=== PATIENT | female | born 1975 | race Caucasian/White ===

== ENCOUNTER 2021-03-17 13:19 | Emergency (ER) | payer OTHER, SELFPAY ==
[2021-03-17 13:30] VITALS: BP 152/86; PULSE 64; RESP 20; TEMP 36.3; O2SAT 99
--- NOTE | 2021-03-17 13:34 | ED.GENADULT ---
HPI - General Adult General Chief complaint: Upper Respiratory Infection Stated complaint: sore throat,diahrrea,nausea Time Seen by Provider: 03/17/21 13:34 Source: patient Mode of arrival: ambulatory Limitations: no limitations History of Present Illness HPI narrative: 46-year-old female patient presents to the [facility] with complaints of sore throat, diarrhea and nausea that started yesterday. Patient is unvaccinated for Covid. Patient's daughter was just diagnosed with strep throat today. Patient denies fevers, body aches or chills. Denies coughing or shortness of breath. Related Data Home Medications Medication Instructions Recorded Confirmed gabapentin 300 mg PO BID 03/17/21 03/17/21 pantoprazole 40 mg PO DAILY 03/17/21 03/17/21 sertraline 100 mg PO DAILY 03/17/21 03/17/21 Allergies Allergy/AdvReac Type Severity Reaction Status Date / Time Latex, Natural Rubber Allergy Rash Verified 06/03/19 08:36 Review of Systems Review of Systems: CONSTITUTIONAL: Denies fever, chills, or sweats. EYES: Denies visual changes, redness, or discharge. ENT: Positive rhinorrhea, congestion, sore throat, denies otalgia. CARDIOVASCULAR: Denies chest pain, palpitations, or edema. RESPIRATORY: Denies cough or dyspnea. GASTROINTESTINAL: Denies abdominal pain, nausea, vomiting, positive diarrhea. GENITOURINARY: Denies dysuria or hematuria. SKIN: Denies rash or itching. MUSCULOSKELETAL: Denies back pain, joint pain, or myalgia. NEUROLOGIC: Positive headache, numbness, or weakness. PSYCHIATRIC: Denies anxiety or depression. PMFSH Past Medical History Medical History No pertinent family history Seasonal asthma Surgical History Surgical History No significant past surgical history Social History Social History Smoking status: Current every day smoker Comments At the time of my signature I agree with nursing past medical history, surgical, social, and family history. There is no relevant family history pertinent to the presenting complaint. Exam Narrative: GENERAL: Well-appearing, well-nourished, and in no acute distress. HEAD: Normocephalic, atraumatic. EYES: PERRLA and EOMI. ENT: Nares with erythema and edema noted bilaterally, no rhinorrhea or epistaxis. Mucous membranes moist. Posterior pharynx with slight erythema but no tonsil enlargement, no exudates or lesions present. Bilateral TMs are clear no erythema or foreign bodies to the canal. NECK: Supple. No lymphadenopathy CHEST: Clear to auscultation. No respiratory distress. HEART: Regular rate and rhythm. No murmur heard. Normal peripheral pulses. ABDOMEN: Soft, nontender, nondistended, normal active bowel sounds. EXTREMITIES: Normal range of motion. No edema. SKIN: Warm, dry, no rash. NEURO: No focal deficits. Alert and oriented x3. Course Vital Signs Vital signs: Vital Signs Temperature 36.3 C L 03/17/21 13:30 Pulse Rate 64 03/17/21 13:30 Respiratory Rate 20 03/17/21 13:30 Blood Pressure 152/86 H 03/17/21 13:30 Pulse Oximetry 99 03/17/21 13:30 Temperature 36.3 C L 03/17/21 13:30 Pulse Rate 64 03/17/21 13:30 Respiratory Rate 20 03/17/21 13:30 Blood Pressure 152/86 H 03/17/21 13:30 Pulse Oximetry 99 03/17/21 13:30 Vital signs reviewed Medical Decision Making Differential Diagnosis Differential Diagnosis: Differential diagnosis: Allergic rhinitis, chronic sinusitis, tonsillitis, acute sinusitis, infectious mononucleosis, seasonal influenza, pertussis, diphtheria, meningococcal disease, viral syndrome, viral bronchitis, RSV, COVID-19 Discussed with patient that her rapid Covid came back negative as well as her strep came back negative however given the fact that her main symptom is a burning sore throat and her daughter just tested positive today for strep we are ca
== END 2021-03-17 14:28 | disposition home or self-care (01) ==
PROVIDERS: Emergency Provider Nurse Practitioner Family
DX: J02.9 Acute pharyngitis, unspecified (principal); Z20.822 Contact with and (suspected) exposure to COVID-19
CPT/HCPCS: 87081; 87426; 87880; 99213; C9803; G0463

== ENCOUNTER 2021-04-06 16:45 | Emergency (ER) | payer OTHER, SELFPAY ==
--- NOTE | 2021-04-06 16:53 | ED.URI ---
HPI - URI/Sore Throat General Chief Complaint: Upper Respiratory Infection Stated Complaint: Nausea/Chest Congestion Time Seen by Provider: 04/06/21 16:53 Source: patient and RN notes reviewed History of Present Illness HPI Narrative: Patient is a 46-year-old female who presents the urgent care with complaints of persistent nausea and diarrhea which is a chronic issue for her with new onset fever. Patient states that she was on amoxicillin due to her daughter having strep on March 17. States that she finished the medication and her strep culture was negative. Patient has been repeatedly tested for Covid and they were all negative in the past. Patient states that she is taking Tylenol and ibuprofen. Currently denies of any cough or other upper respiratory symptoms. States that she takes Imodium and drinks water for her abdominal issues. Patient states her main concern today is her daughter . No other acute complaints. No acute distress noted. Patient aware of the plan of care. Some parts of this dictation were generated by voice recognition software and may contain typographical and/or grammatical inaccuracies. Related Data Home Medications Medication Instructions Recorded Confirmed gabapentin 300 mg PO BID 03/17/21 04/06/21 pantoprazole 40 mg PO DAILY 03/17/21 04/06/21 sertraline 100 mg PO DAILY 03/17/21 04/06/21 Allergies Allergy/AdvReac Type Severity Reaction Status Date / Time Latex, Natural Rubber Allergy Rash Verified 06/03/19 08:36 Review of Systems Review of Systems: CONSTITUTIONAL: Reports of subjective fever EYES: Denies visual changes, redness, or discharge. ENT: Denies rhinorrhea, sore throat, or otalgia. Reports of sinus congestion CARDIOVASCULAR: Denies chest pain, palpitations, or edema. RESPIRATORY: Denies cough or dyspnea. GASTROINTESTINAL: Reports of chronic nausea and diarrhea without vomiting or abdominal pain GENITOURINARY: Denies dysuria or hematuria. SKIN: Denies rash or itching. MUSCULOSKELETAL: Denies back pain, joint pain, or myalgia. NEUROLOGIC: Denies headache, numbness, or weakness. All other systems reviewed are negative, except as documented in HPI. ON LICENSE OF [facility] Past Medical History Medical History No pertinent family history Seasonal asthma Surgical History Surgical History No significant past surgical history Social History Social History Smoking status: Current every day smoker Comments At the time of my signature, I reviewed and agree with the nursing past medical, surgical, social, and family history. There is no relevant family history pertinent to the patient complaint. Exam Narrative: GENERAL: This is a well-nourished, well-developed patient, in no apparent distress. HEAD: normocephalic, atraumatic. EYES: PERRL. Sclera clear/white. Vision is grossly intact. EARS: External ears normal, auditory canals clear and without drainage, TMs normal without perforation. Hearing grossly intact. NOSE: External nose normal with no obvious nasal discharge, nares without redness, no rhinorrhea. THROAT: Mucous membranes moist, posterior pharynx clear. Moderate postnasal drainage NECK: Neck supple CARDIOVASCULAR: Regular rate and rhythm without murmurs, gallops, or rubs. RESPIRATORY: Clear to auscultation. Breath sounds equal bilaterally. No wheezes, rales, or rhonchi. GASTROINTESTINAL: Abdomen soft, non-tender, nondistended. Bowel sounds are active. SKIN: warm, intact with no suspicious lesions or rash, good texture and turgor. NEURO: awake, alert, and oriented to person, place and time. There were no obvious focal neurologic abnormalities. EXTREMITIES: No clubbing, cyanosis, or edema. Course Vital Signs Vital signs: Vital Signs Temperature 97 F L 04/06/21 17:00 Pulse Rate 60 04/06/21 17:00 Respiratory Rate
[2021-04-06 17:00] VITALS: BP 150/90; BP 168/134; PULSE 60; RESP 16; TEMP 36.1; O2SAT 97
[2021-04-06 17:03] VITALS: BP 168/134; PULSE 60; RESP 16; TEMP 36.1; O2SAT 97
== END 2021-04-06 17:25 | disposition home or self-care (01) ==
PROVIDERS: Emergency Provider Nurse Practitioner Family; PCP Internal Medicine
DX: R11.0 Nausea (principal); J06.9 Acute upper respiratory infection, unspecified; F17.200 Nicotine dependence, unspecified, uncomplicated; J45.909 Unspecified asthma, uncomplicated
CPT/HCPCS: 99211; G0463

== ENCOUNTER 2021-07-15 09:16 | Emergency (ER) | payer OTHER, SELFPAY ==
[2021-07-15 09:28] VITALS: PULSE 88; RESP 14; TEMP 36.4; O2SAT 99
--- NOTE | 2021-07-15 09:30 | ED.GENADULT ---
HPI - General Adult General Chief complaint: Extremity Injury, Upper Stated complaint: right shoulder pain Time Seen by Provider: 07/15/21 09:30 Source: patient Mode of arrival: ambulatory Limitations: no limitations History of Present Illness HPI narrative: 46-year-old female patient presents to the [facility] with complaints of right shoulder pain. Patient states about 2 to 3 weeks ago she injured her shoulder when carrying a heavy item up some steps. 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 Patient states she has been also having some tingling down the arm to her hand and fingertips. Related Data Home Medications Medication Instructions Recorded Confirmed gabapentin 300 mg PO BID 03/17/21 07/15/21 pantoprazole 40 mg PO DAILY 03/17/21 07/15/21 sertraline 100 mg PO DAILY 03/17/21 07/15/21 Allergies Allergy/AdvReac Type Severity Reaction Status Date / Time Latex, Natural Rubber Allergy Rash Verified 07/15/21 10:22 Review of Systems Review of Systems: CONSTITUTIONAL: Denies fever, chills, or sweats. EYES: Denies visual changes, redness, or discharge. ENT: Denies rhinorrhea, congestion, sore throat, or otalgia. CARDIOVASCULAR: Denies chest pain, palpitations, or edema. RESPIRATORY: Denies cough or dyspnea. GASTROINTESTINAL: Denies abdominal pain, nausea, vomiting, or diarrhea. GENITOURINARY: Denies dysuria or hematuria. SKIN: Denies rash or itching. MUSCULOSKELETAL: Denies back pain, joint pain, or myalgia. Positive right shoulder pain NEUROLOGIC: Denies headache, numbness, or weakness. PSYCHIATRIC: Denies anxiety or depression. [facility] Past Medical History Medical History No pertinent family history Seasonal asthma Surgical History Surgical History No significant past surgical history Social History Social History Smoking status: Current every day smoker Comments At the time of my signature I agree with nursing past medical history, surgical, social, and family history. There is no relevant family history pertinent to the presenting complaint. Exam Narrative: GENERAL: Well-appearing, well-nourished, and in no acute distress. HEAD: Normocephalic, atraumatic. EYES: PERRLA and EOMI. ENT: Nares clear, no rhinorrhea or epistaxis. Mucous membranes moist. NECK: Supple. No lymphadenopathy CHEST: Clear to auscultation. No respiratory distress. HEART: Regular rate and rhythm. No murmur heard. Normal peripheral pulses. ABDOMEN: Soft, nontender, nondistended, normal active bowel sounds. EXTREMITIES: The R shoulder is without obvious asymmetry or deformity when compared to the L shoulder. No surface trauma, ecchymosis, crepitus. No bony deformity or prominence of the humeral head No erythema, warmth, slight swelling noted to the posterior shoulder near the top of the scapula. no tenderness to palpation to clavicle, A to C joint, acromion, scapula or humeral head. No tenderness to palpation of the bicipital groove or soft tissues. tenderness to palpation of the muscles over the top of the right scapula area. Patient does have a obvious muscle spasm palpated as well as visualized during exam. No muscle tenderness over the sterncleidomastoid, pectorals, biceps/triceps, deltoid, trapezius, rhomboid, latissimus dorsi, rotator cuff. No pain or limitation with active or passive abduction/adduction, internal/external rotation, flexion/extension. Negative empty can and drop arm test (rotator cuff). No axillary tenderness or lymphadenopathy. Normal sensation over the deltoid and ability to flex arm at elbow indicates intact axillary nerve function. Distal motor and neurovascular status i
[2021-07-15 10:12] VITALS: BP 140/82
== END 2021-07-15 10:50 | disposition home or self-care (01) ==
PROVIDERS: Emergency Provider Nurse Practitioner Family; PCP Internal Medicine
DX: M62.838 Other muscle spasm (principal); F17.200 Nicotine dependence, unspecified, uncomplicated
CPT/HCPCS: 99213; G0463

== ENCOUNTER 2022-07-08 22:48 | Emergency (ER) | payer OTHER, SELFPAY ==
--- NOTE | ~2022-07-08 | CT_ITS ---
EXAMINATION: CT abdomen pelvis w con DATE: 07/09/2022 01:44 INDICATION: Hematemesis. Hematochezia. Left lower quadrant abdominal pain. TECHNIQUE: Computed tomography (CT) of the abdomen and pelvis was performed with 100 mL Omnipaque 350 intravenous contrast. Automated exposure control and iterative reconstruction technique were employe d. The dose-length product was 671.07 mGy-cm. COMPARISON: None. FINDINGS: The visualized portions of the lung bases demonstrate minimal atelectasis. No pleural effus ion. The heart size is normal. No pericardial effusion. There is a small sliding hiatal hernia. The l iver, spleen, gallbladder, pancreas, and adrenal glands are normal. There is a 5 mm cyst in right kid jeff. There is a 4 mm stone in left kidney. There is a right femoral hernia containing fat. There are changes of appendectomy. There are no pathologically enlarged lymph nodes. There is no free intraperi toneal fluid. There is a 1.3 cm sclerotic lesion in left ilium, likely benign. There is mild lumbar s pondylosis. IMPRESSION: 1. Nonobstructing left kidney stone. 2. Small sliding hiatal hernia. Reviewed, dictated and finalized at location A. 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
[2022-07-08 23:10] VITALS: BP 172/76; PULSE 71; RESP 16; TEMP 36.5; O2SAT 96
--- NOTE | 2022-07-09 00:42 | ED.ABDPAIN ---
HPI - Abdominal Pain General Chief Complaint: Abdominal Pain Stated Complaint: abdominal pain, blood in vomit and stool Time Seen by Provider: 07/09/22 00:37 Source: patient Mode of arrival: ambulatory Limitations: no limitations History of Present Illness HPI narrative: FIVE DAYS AGO THIS 47-YEAR-OLD WHITE FEMALE STARTED HAVING BLOOD IN HER STOOL AND LEFT LOWER QUADRANT PAIN AND THEN 2 NIGHTS AGO SHE VOMITED UP BLOOD WITH FOOD. COMPLAINS OF PERSISTENT PAIN SO CAME TO THE EMERGENCY ROOM FOR EVALUATION. she had no history of peptic ulcer disease gastritis previous hematemesis. She had no history of diverticulitis or previous blood in her stool. She has not had any endoscopies or cancer screening or cancer. Denies any fever irritable bowel syndrome. hx appendectomy and hysterectomy for scarring and bleeding and large ovary. Was removed surgically. NO History of cancer. pain is 6/10 LLQ ACHY PAIN Related Data Home Medications Medication Instructions Recorded Confirmed sertraline 100 mg tablet 100 mg PO DAILY 03/17/21 07/09/22 lisinopril 10 mg tablet 10 mg PO DIRECTED 07/09/22 07/09/22 Allergies Allergy/AdvReac Type Severity Reaction Status Date / Time Latex, Natural Rubber Allergy Rash Verified 07/09/22 01:32 Review of Systems Constitutional: Constitutional: Reports no additional constitutional complaints Eyes: Eyes: Reports no additional eye complaints ENT: Reports system reviewed and no additional complaints, except as documented Cardiovascular: Cardiovascular: Reports no additional cardiovascular complaints and Denies chest pain Respiratory: Respiratory: Reports no additional respiratory complaints, Denies cough and Denies dyspnea Gastrointestinal: Gastrointestinal: Reports as per HPI, Reports no additional gastrointestinal complaints, Reports abdominal pain, Denies constipation, Denies heartburn, Denies diarrhea, Reports nausea and Reports vomiting Genitourinary: Genitourinary: Reports no additional female genitourinary complaints Musculoskeletal: Musculoskeletal: Reports no additional musculoskeletal complaints and Reports back pain ( SOMETIMES WHEN SHE HAS THE ABDOMINAL PAIN SHE HAS SOME L LOWER BACK PAIN) Integumentary/Breasts: Skin/Breast: Denies erythema and Denies rash Neurologic: Reports system reviewed and no additional complaints, except as documented, Denies confusion, Denies dizziness, Denies headache(s), Denies numbness and Denies weakness PMFSH Past Medical History Medical History No pertinent family history Seasonal asthma Surgical History Surgical History No significant past surgical history Social History Social History Smoking status: Current every day smoker Comments APPENDECTOMY HYSTERECTOMY LEFT OVARY REMOVED, SURGERY FOR BLEEDING ASSOCIATED WITH HER DONE ON HER UTERUS Exam Narrative: WHITE FEMALE SHE APPEARS IN NO APPARENT DISTRESS EYES CONJUNCTIVA PINK SCLERA NONICTERIC OROPHARYNX CLEAR WITH MOIST MUCOUS MEMBRANES. NECK IS SUPPLE. LUNGS ARE CLEAR. HEART IS REGULAR RATE RHYTHM WITHOUT MURMURS GALLOPS OR RUBS. ABDOMEN IS SOFT AND NONTENDER NO HEPATOSPLENOMEGALY OR MASSES NO CVA TENDERNESS NO ABDOMINAL BRUITS. NEGATIVE DUMONT SIGN AND. NEGATIVE INTO HER ORAL OBTURATOR'S SIGN . . SKIN IS WARM AND DRY NEUROLOGIC SHE IS ALERT AND ORIENTED X4. Course Vital Signs Vital signs: Vital Signs Temperature 36.5 C 07/08/22 23:10 Pulse Rate 71 07/08/22 23:10 Respiratory Rate 16 07/08/22 23:10 Blood Pressure 172/76 H 07/08/22 23:10 Pulse Oximetry 96 07/08/22 23:10 Oxygen Delivery Room Air 07/08/22 23:10 Temperature 36.5 C 07/08/22 23:10 Pulse Rate 64 07/09/22 02:33 Respiratory Rate 16 07/09/22 02:33 Blood Pressure 151/94 H 07/09/22 02:33 Pulse Oximetry 98
[2022-07-09 00:56] LABS: Basophils Absolute Auto 0.06 K/mm3 (0.00-0.10); Basophils Percent Auto 0.5 % (0.0-1.0); Eosinophils Percent Auto 2.3 % (1.0-6.0); Hemoglobin 14.2 g/dL (12.0-15.0); Immature Granulocyte Absolute 0.05 K/mm3 (0.00-0.00); Immature Granulocyte Percent A 0.4 % (0.0-0.0); Lymphocytes Percent Auto 28.2 % (18.0-42.0); Mean Corpuscular HGB Conc 33.8 g/dL (32.0-36.0); Mean Corpuscular Hemoglobin 33.3 pg (27.0-31.0); Mean Corpuscular Volume 98.6 fL (78.0-102.0); Monocytes Absolute Auto 0.78 K/mm3 (0.10-0.90); Monocytes Percent Auto 6.1 % (2.0-11.0); Neutrophils Percent Auto 62.5 % (50.0-70.0); Platelet Count Result 285 K/mm3 (150-420); Red Blood Count 4.26 M/mm3 (4.20-5.40); Red Cell Distribution Width 12.7 % (11.6-14.4); White Blood Count 12.8 K/mm3 (4.8-10.8)
[2022-07-09] MEDS: SODIUM CHLORIDE 0.9% IV 1,000 ML 999 ML IV CONT (01:15)
[2022-07-09 01:16] LABS: Alanine Aminotransferase 36 U/L (14-59); Albumin Level 3.5 g/dL (3.4-5.0); Alkaline Phosphatase 78 U/L (46-116); Anion Gap 6 mmol/L (8-16); Aspartate Amino Transferase 17 U/L (15-37); Bilirubin,Total 0.3 mg/dL (0.00-1.00); Blood Urea Nitrogen 14 mg/dL (7-18); Calcium 9.2 mg/dL (8.5-10.1); Carbon Dioxide 29 mmol/L (21-32); Chloride 100 mmol/L (98-108); Estimated Glomerular Filt Rate > 60; Glucose 106 mg/dL (70-99); Lipase 69 U/L (16-77); Osmolality Calculated 280 mOsm/kg (285-295); Potassium 3.7 mmol/L (3.5-5.1); Sodium 135 mmol/L (136-145)
[2022-07-09] MEDS: MORPHINE SULFATE (*CRX) 4 MG/ML INJ IV PUSH (01:17)
[2022-07-09] MEDS: ONDANSETRON INJ 4 MG/2 ML VIAL IV PUSH (01:18)
[2022-07-09] MEDS: PANTOPRAZOLE SODIUM IV 40 MG VIAL IV PUSH (01:20)
[2022-07-09 02:04] LABS: Add Urine Microscopic? NO; Appearance Urine Clear (Clear); Bilirubin Urine Negative (Negative); Blood Urine Negative (Negative); Color Urine Light Yellow (Yellow); Glucose Urine UA Negative (Negative); Ketones Urine Negative (Negative); Leukocyte Esterase Ur Negative LEU/UL (Negative); Nitrate Urine Negative (Negative); Protein Urine Negative (Negative); Specific Grav Ur 1.015 (1.010-1.020); Urobilinogen Urine 0.2 mg/dL (0.2-1.0)
[2022-07-09 02:27] VITALS: BP 146/69; PULSE 55; RESP 16; O2SAT 95
[2022-07-09 02:33] VITALS: BP 151/94; PULSE 64; RESP 16; O2SAT 98
--- NOTE | 2022-07-09 03:22 | PC.NURSE ---
Pt initially had a ride en route to pick pt up, but states she is unable to get ahold of her ride. After multiple tries, pt is unable to get a ride. ERP states pt is cleared to drive at 0715. RN educates pt on reason for stay and that she can leave if a ride shows up. Pt verbalizes understanding and has no objections at this time. Pt asked for the head of the bed to be lowered and to dim the lights. RN performed these actions and left the call light within reach of pt.
[2022-07-09 06:44] VITALS: BP 130/79; PULSE 64; RESP 16; O2SAT 96
== END 2022-07-09 07:04 | disposition home or self-care (01) ==
PROVIDERS: Emergency Provider Emergency Medicine; PCP Internal Medicine
DX: K92.0 Hematemesis (principal); R10.9 Unspecified abdominal pain; N20.0 Calculus of kidney; K92.1 Melena
CPT/HCPCS: 36415; 74177; 80053; 81003; 83690; 85025; 96361; 96374; 96375; 99284; C9113; J2270; J2405; J7030; Q9967

== ENCOUNTER 2022-08-14 16:33 | Emergency (ER) | payer OTHER, SELFPAY ==
[2022-08-14 16:39] VITALS: BP 152/79; PULSE 72; RESP 16; TEMP 36.6; O2SAT 97
--- NOTE | 2022-08-14 16:41 | ED.URI ---
HPI - URI/Sore Throat General Chief Complaint: Upper Respiratory Infection Stated Complaint: Throat and chest congestion Time Seen by Provider: 08/14/22 16:41 Source: patient and RN notes reviewed History of Present Illness HPI Narrative: Patient is a 47-year-old female who presents to urgent care with complaints of chest congestion, sore throat, tightness and cough. Patient states that she has also had diarrhea for approximately 1 week. Patient states symptoms started 2 weeks ago and she has had symptoms off and on. Denies any abdominal pain, nausea or vomiting. States that she has been taking Mucinex, Tylenol and ibuprofen. No other acute complaints. Denies any known ill exposures. No acute distress noted. Patient aware of the plan of care. Some parts of this dictation were generated by voice recognition software and may contain typographical and/or grammatical inaccuracies. Related Data Home Medications Medication Instructions Recorded Confirmed sertraline 100 mg tablet 100 mg PO DAILY 03/17/21 08/14/22 lisinopril 10 mg tablet 10 mg PO DIRECTED 07/09/22 08/14/22 Allergies Allergy/AdvReac Type Severity Reaction Status Date / Time Latex, Natural Rubber Allergy Rash Verified 08/14/22 17:05 Review of Systems Review of Systems: CONSTITUTIONAL: Denies fever, chills, or sweats. EYES: Denies visual changes, redness, or discharge. ENT: Reports rhinorrhea and sinus pressure with sore throat CARDIOVASCULAR: Denies chest pain, palpitations, or edema. RESPIRATORY: Reports of cough, chest congestion without dyspnea GASTROINTESTINAL: Reports of diarrhea without abdominal pain, nausea or vomiting GENITOURINARY: Denies dysuria or hematuria. SKIN: Denies rash or itching. MUSCULOSKELETAL: Denies back pain, joint pain, or myalgia. NEUROLOGIC: Denies headache, numbness, or weakness. All other systems reviewed are negative, except as documented in HPI. [facility] Past Medical History Medical History No pertinent family history Seasonal asthma Surgical History Surgical History No significant past surgical history Social History Social History Smoking status: Current every day smoker Comments At the time of my signature, I reviewed and agree with the nursing past medical, surgical, social, and family history. There is no relevant family history pertinent to the patient complaint. Exam Narrative: GENERAL: This is a well-nourished, well-developed patient, in no apparent distress. HEAD: normocephalic, atraumatic. EYES: PERRL. Sclera clear/white. Vision is grossly intact. EARS: External ears normal, auditory canals clear and without drainage, TMs normal without perforation. Hearing grossly intact. NOSE: External nose normal with no obvious nasal discharge, nares without redness, clear rhinorrhea. THROAT: Mucous membranes moist, mild erythema to posterior pharynx with Moderate postnasal drainage NECK: Neck supple, non-tender without lymphadenopathy CARDIOVASCULAR: Regular rate and rhythm RESPIRATORY: Clear to auscultation. Breath sounds equal bilaterally. No wheezes, rales, or rhonchi. GASTROINTESTINAL: Abdomen soft, non-tender, nondistended. Bowel sounds are active. SKIN: warm, intact with no suspicious lesions or rash, good texture and turgor. NEURO: awake, alert, and oriented to person, place and time. There were no obvious focal neurologic abnormalities. EXTREMITIES: No clubbing, cyanosis, or edema. Course Course Level of Care: Express Care Visit Vital Signs Vital signs: Vital Signs Temperature 97.8 F 08/14/22 16:39 Pulse Rate 72 08/14/22 16:39 Respiratory Rate 16 08/14/22 16:39 Blood Pressure 152/79 H 08/14/22 16:39 Pulse Oximetry 97 08/14/22 16:39 Oxygen Delivery Room Air 08/14/22 16:39 Temperature 97.8 F 08/14/22 16:39
== END 2022-08-14 17:20 | disposition home or self-care (01) ==
PROVIDERS: Emergency Provider Nurse Practitioner Family; PCP Internal Medicine
DX: J02.9 Acute pharyngitis, unspecified (principal); R19.7 Diarrhea, unspecified; F17.200 Nicotine dependence, unspecified, uncomplicated
CPT/HCPCS: 87081; 87880; 99213; G0463

== ENCOUNTER 2022-10-18 12:07 | Emergency (ER) | payer OTHER, SELFPAY ==
[2022-10-18 12:12] VITALS: BP 148/96; PULSE 68; RESP 16; TEMP 36.3; O2SAT 98
--- NOTE | 2022-10-18 12:58 | ED.SKABFB ---
HPI - Skin/Abscess/Foreign Bdy General Chief complaint: Skin/Abscess/Foreign Body Stated complaint: pain in right breast Time Seen by Provider: 10/18/22 12:55 Source: patient, RN notes reviewed and old records reviewed Mode of arrival: ambulatory Limitations: no limitations History of Present Illness HPI narrative: 47 year old female who presents to [facility] care with 10 day history of right breast pain with nipple feeling like it is on fire. Patient reports that breast feels heavy with some warmth, pain lower aspect of right breast with radiation of pain up right side of right breast toward shoulder. Patient reports no nipple discharge. patient reports that she called [employer] office and can't get appointment till first part of October. Patient reports last mammogram 1.5 years ago. Patient concerned due to family history of breast cancer. MD complaint: other (warmth and pain to breast 10 days) Onset (ago): day(s) (10 increasing intensity) Severity scale (1-10): 8 Pain Consistency: constant Treatments prior to arrival: other (tylenol) Related Data Home Medications Medication Instructions Recorded Confirmed sertraline 100 mg tablet 100 mg PO DAILY 03/17/21 10/18/22 lisinopril 10 mg tablet 10 mg PO DIRECTED 07/09/22 10/18/22 Allergies Allergy/AdvReac Type Severity Reaction Status Date / Time codeine Allergy Unknown Verified 10/18/22 12:34 Latex, Natural Rubber Allergy Anaphylaxis Verified 10/18/22 12:34 Review of Systems Review of Systems: CONSTITUTIONAL: Denies fever, chills, or sweats. EYES: Denies visual changes, redness, or discharge. ENT: Denies rhinorrhea, congestion, sore throat, or otalgia. CARDIOVASCULAR: Denies chest pain, palpitations, or edema. RESPIRATORY: Denies cough or dyspnea. GASTROINTESTINAL: Denies abdominal pain, nausea, vomiting, or diarrhea. GENITOURINARY: Denies dysuria or hematuria. SKIN: Denies rash or itching. 10 day history of right nipple burning with breast feeling heavy and some warm MUSCULOSKELETAL: Denies back pain, joint pain, or myalgia. NEUROLOGIC: Denies headache, numbness, or weakness. PSYCHIATRIC: Positive for history of anxiety or depression. All systems reviewed & are unremarkable except as noted in HPI and below PMFSH Past Medical History Medical History Anxiety and depression GERD (gastroesophageal reflux disease) Hypertension Kidney stones Seasonal asthma Surgical History Surgical History H/O exploratory laparotomy X2 endometriosis H/O: hysterectomy History of appendectomy S/P colon resection Family History Family History Other Breast cancer Social History Social History Smoking status: Current every day smoker Comments At time of signature, agree with nursing past medical, surgical, social and family history. There is no relevant family history pertinent to the presenting complaint Exam Narrative: GENERAL: Well-appearing, well-nourished, and in no acute distress. HEAD: Normocephalic, atraumatic. EYES: PERRLA and EOMI. ENT: Nares clear, no rhinorrhea or epistaxis. Mucous membranes moist.TM's normal throat pink with no swelling present NECK: Supple. no lymphadenopathy CHEST: Clear to auscultation. No respiratory distress.SAO2 98% on room air HEART: Regular rate and rhythm. No murmur heard. Normal peripheral pulses. ABDOMEN: Soft, nontender, nondistended, normal active bowel sounds. EXTREMITIES: Normal range of motion. No edema. SKIN: Warm, dry, no rash. right breast warmth pain with nipple burning feeling, stated being on 'fire' No noted redness, some warm present no nipple discharge. NEURO: No focal deficits. Alert and oriented x3. Course Course Emergency Course: Patient is aware of diagnosis, understands and agrees to treatment plan.?
== END 2022-10-18 13:07 | disposition home or self-care (01) ==
PROVIDERS: Emergency Provider Registered Nurse; PCP Internal Medicine
DX: N61.0 Mastitis without abscess (principal); K21.9 Gastro-esophageal reflux disease without esophagitis; I10 Essential (primary) hypertension; F17.200 Nicotine dependence, unspecified, uncomplicated; F41.9 Anxiety disorder, unspecified; F32.A Depression, unspecified
CPT/HCPCS: 99213; G0463

== ENCOUNTER 2022-10-24 06:43 | Emergency (ER) | payer OTHER, SELFPAY ==
[2022-10-24 06:53] VITALS: BP 173/91; PULSE 78; RESP 18; TEMP 36.6; O2SAT 100
--- NOTE | 2022-10-24 06:53 | ED.ABDPAIN ---
HPI - Abdominal Pain General Chief Complaint: Abdominal Pain Stated Complaint: Abd Pain Time Seen by Provider: 10/24/22 06:53 Source: patient Mode of arrival: ambulatory Limitations: no limitations History of Present Illness HPI narrative: 47-year-old female status post cholecystectomy, status post hysterectomy presents to the ER with a 1 day history of -- right upper quadrant abdominal pain. the pain radiates down to the right lower quadrant. The pain is intermittent. She has nausea and vomiting. No fever. She is in tears with abdominal pain -- Patient is hyperventilating. MD elicited complaint: abdominal pain Onset (ago): day(s) ( pain started last night) Pain Consistency: intermittent Location: RUQ Severity: mild Quality: aching Radiation: RLQ Migration to: RLQ Exacerbating factors: nothing Relieving factors: nothing Associated symptoms: nausea, vomiting and diarrhea Related Data Home Medications Medication Instructions Recorded Confirmed sertraline 100 mg tablet 100 mg PO DAILY 03/17/21 10/24/22 lisinopril 10 mg tablet 10 mg PO DIRECTED 07/09/22 10/24/22 Allergies Allergy/AdvReac Type Severity Reaction Status Date / Time codeine Allergy Unknown Verified 10/18/22 12:34 Latex, Natural Rubber Allergy Anaphylaxis Verified 10/18/22 12:34 Review of Systems Review of Systems: All systems reviewed & are unremarkable except as noted in HPI and below Constitutional: Constitutional: Reports as per HPI and Reports no additional constitutional complaints Eyes: Eyes: Reports as per HPI and Reports no additional eye complaints ENT: Reports system reviewed and no additional complaints, except as documented and Reports as per HPI Cardiovascular: Cardiovascular: Reports as per HPI and Reports no additional cardiovascular complaints Respiratory: Respiratory: Reports as per HPI and Reports no additional respiratory complaints Gastrointestinal: Gastrointestinal: Reports as per HPI, Reports no additional gastrointestinal complaints, Reports abdominal pain, Reports nausea and Reports vomiting Genitourinary: Genitourinary: Reports no additional female genitourinary complaints and Reports as per HPI Musculoskeletal: Musculoskeletal: Reports no additional musculoskeletal complaints and Reports as per HPI Integumentary/Breasts: Skin/Breast: Reports system reviewed and no additional complaints, except as docu and Reports as per HPI Neurologic: Reports system reviewed and no additional complaints, except as documented and Reports as per HPI Psychiatric: Psychiatric: Reports no additional psychiatric complaints, Reports as per HPI and Reports anxiety Endocrine: Endocrine: Reports no additional endocrine complaints and Reports as per HPI Hematologic/Lymphatic: Hematologic/Lymphatic: Reports no additional hematologic/lymphatic complaints and Reports as per HPI Allergic/Immunologic: Allergic/Immunologic: Reports no additional allergic/immunologic complaints and Reports as per HPI [facility] Past Medical History Medical History Anxiety and depression GERD (gastroesophageal reflux disease) Hypertension Kidney stones Seasonal asthma Surgical History Surgical History H/O exploratory laparotomy X2 endometriosis H/O: hysterectomy History of appendectomy S/P colon resection Family History Family History Other Breast cancer Social History Social History Smoking status: Current every day smoker Exam Const: General: healthy appearing, no acute distress and alert Orientation/consciousness: patient oriented x3 HENMT: Head: normal to inspection Ears: external ears normal Face/Nose/Sinus: Normal external nose present Face and sinus: normal facial exam Mouth: Yes Normal oral and palatal mucosa p
--- NOTE | 2022-10-24 06:59 | ECG_ITS ---
Measurements Intervals [place] Rate: 55 P: 58 VT: 150 QRS: 81 QRSD: 97 T: -19 QT: 454 QTc: 437 Interpretive Statements SINUS BRADYCARDIA NONSPECIFIC T-WAVE ABNORMALITY ABNORMAL ECG NO PREVIOUS ECG AVAILABLE FOR COMPARISON Electronically Signed On 10-24-2022 9:00:25 CDT by Abebe Gant M.D.
[2022-10-24] MEDS: ONDANSETRON INJ 4 MG/2 ML VIAL IV PUSH (07:03)
[2022-10-24] MEDS: HYDROmorphone HCL INJ (*CRX) 2 MG/ML VIAL 0.5 MG IV PUSH (07:06)
--- NOTE | 2022-10-24 07:16 | PC.NURSE ---
Report to YOLA Lopez. Pt resting c call ferrer at side.
[2022-10-24 07:17] LABS: Basophils Absolute Auto 0.08 K/mm3 (0.00-0.10); Basophils Percent Auto 0.5 % (0.0-1.0); Eosinophils Absolute Auto 0.09 K/mm3 (0.02-0.50); Eosinophils Percent Auto 0.5 % (1.0-6.0); Hematocrit 46.2 % (35.0-49.0); Hemoglobin 15.9 g/dL (12.0-15.0); Immature Granulocyte Absolute 0.09 K/mm3 (0.00-0.00); Immature Granulocyte Percent A 0.5 % (0.0-0.0); Lymphocytes Absolute Auto 2.15 K/mm3 (1.10-4.50); Lymphocytes Percent Auto 12.8 % (18.0-42.0); Mean Corpuscular HGB Conc 34.4 g/dL (32.0-36.0); Mean Corpuscular Hemoglobin 33.4 pg (27.0-31.0); Mean Corpuscular Volume 97.1 fL (78.0-102.0); Mean Platelet Volume 8.9 fl (9.2-11.8); Monocytes Absolute Auto 0.88 K/mm3 (0.10-0.90); Monocytes Percent Auto 5.3 % (2.0-11.0); Neutrophils Absolute Auto 13.5 K/mm3 (1.7-7.2); Neutrophils Percent Auto 80.4 % (50.0-70.0); Platelet Count Result 314 K/mm3 (150-420); Red Blood Count 4.76 M/mm3 (4.20-5.40); Red Cell Distribution Width 12.3 % (11.6-14.4); White Blood Count 16.8 K/mm3 (4.8-10.8)
[2022-10-24 07:25] VITALS: BP 149/70; PULSE 88; RESP 20; TEMP 36.6; O2SAT 97
[2022-10-24 07:31] LABS: Partial Thromboplastin Time 27.6 SEC (23.90-30.70); Prothrombin Time 10.5 Seconds (9.50-12.10)
[2022-10-24 07:45] LABS: Appearance Urine Slightly Cloudy (Clear); Bilirubin Urine Negative (Negative); Blood Urine Negative (Negative); Color Urine Light Yellow (Yellow); Glucose Urine UA Negative (Negative); Ketones Urine Negative (Negative); Leukocyte Esterase Ur Negative LEU/UL (Negative); Nitrate Urine Negative (Negative); Protein Urine Negative (Negative); Specific Grav Ur 1.015 (1.010-1.020); Urobilinogen Urine 0.2 mg/dL (0.2-1.0)
[2022-10-24 07:49] LABS: Add Urine Microscopic? NO
[2022-10-24 07:52] LABS: Alanine Aminotransferase 33 U/L (14-59); Alkaline Phosphatase 83 U/L (46-116); Anion Gap 7 mmol/L (8-16); Aspartate Amino Transferase 21 U/L (15-37); Bilirubin,Total 0.3 mg/dL (0.00-1.00); Blood Urea Nitrogen 12 mg/dL (7-18); Calcium 9.2 mg/dL (8.5-10.1); Carbon Dioxide 30 mmol/L (21-32); Chloride 102 mmol/L (98-108); Estimated CRCL calculation 85 ml/min; Estimated Glomerular Filt Rate > 60; Glucose 150 mg/dL (70-99); Lactic Acid Reflex 2.8 mmol/L (0.4-2.0); Lipase 42 U/L (16-77); Osmolality Calculated 290 mOsm/kg (285-295); Potassium 3.6 mmol/L (3.5-5.1); Sodium 139 mmol/L (136-145); Total Protein 7.9 g/dL (6.4-8.2); Troponin I 6.5 ng/L (0.00-60.4)
[2022-10-24 08:00] VITALS: BP 144/69; PULSE 74; RESP 16; TEMP 36.7; O2SAT 98
[2022-10-24 10:15] LABS: Reflex Lactic Acid Yes or No Add Lactic
== END 2022-10-24 08:26 | disposition home or self-care (01) ==
PROVIDERS: Internal Medicine Critical Care Medicine; Emergency Provider Emergency Medicine; PCP Internal Medicine
DX: K52.9 Noninfective gastroenteritis and colitis, unspecified (principal); I10 Essential (primary) hypertension; F17.200 Nicotine dependence, unspecified, uncomplicated; Z90.49 Acquired absence of other specified parts of digestive tract; Z78.0 Asymptomatic menopausal state
CPT/HCPCS: 36415; 80053; 81003; 83605; 83690; 84484; 85025; 85610; 85730; 93005; 96374; 96375; 99284; J1170; J2405

== ENCOUNTER 2023-12-21 10:39 | Emergency (ER) | payer OTHER, SELFPAY ==
[2023-12-21 10:44] VITALS: BP 155/93; PULSE 65; RESP 18; TEMP 36.3; O2SAT 100
--- NOTE | 2023-12-21 10:56 | ED.EYEPROB ---
HPI - Eye Problem General Chief complaint: Eye Problems Stated complaint: Right Eye Swelling History of Present Illness HPI Narrative: Patient presents with swelling and tenderness to her eyelid on her right eye. Patient denies any vision problems no drainage from eyes no redness to eyes. Related Data Home Medications Medication Instructions Recorded Confirmed irbesartan 150 mg tablet 150 mg PO DAILY 12/21/23 12/21/23 nicotine 21 mg/24 hr daily 1 patch transdermal DAILY 12/21/23 12/21/23 transdermal patch sertraline 50 mg tablet 50 mg PO DAILY 12/21/23 12/21/23 Allergies Allergy/AdvReac Type Severity Reaction Status Date / Time codeine Allergy Unknown Verified 12/21/23 10:53 Latex, Natural Rubber Allergy Anaphylaxis Verified 12/21/23 10:53 Review of Systems Review of Systems: CONSTITUTIONAL: Denies fever, chills, or sweats. EYES: Denies visual changes, redness, or discharge. ENT: Denies rhinorrhea, congestion, sore throat, or otalgia. CARDIOVASCULAR: Denies chest pain, palpitations, or edema. RESPIRATORY: Denies cough or dyspnea. GASTROINTESTINAL: Denies abdominal pain, nausea, vomiting, or diarrhea. GENITOURINARY: Denies dysuria or hematuria. SKIN: Denies rash or itching. MUSCULOSKELETAL: Denies back pain, joint pain, or myalgia. NEUROLOGIC: Denies headache, numbness, or weakness. PSYCHIATRIC: Denies anxiety or depression. PMFSH Past Medical History Medical History Anxiety and depression GERD (gastroesophageal reflux disease) Hypertension Kidney stones Seasonal asthma Surgical History Surgical History H/O exploratory laparotomy X2 endometriosis H/O: hysterectomy History of appendectomy S/P colon resection Family History Family History Other Breast cancer Social History Social History Smoking status: Current every day smoker Comments At time of signature, agree with nursing past medical, surgical, social and family history. There is no relevant family history pertinent to the presenting complaint Exam Narrative: GENERAL: Well-appearing, well-nourished, and in no acute distress. HEAD: Normocephalic, atraumatic. EYES: PERRLA and EOMI. no redness to the eye, no drainage, no blurred vision. no pain of the eye with movement. swelling and redness to the edge of the eyelid. believes it is a sty. right upper eyelid vision 20/20 with corrective glasses hordeolum present, no drainable abscess, mild eyelid redness and swelling. no concern for berenice-orbital cellulitis or orbital cellulitis ENT: Nares clear, no rhinorrhea or epistaxis. Mucous membranes moist. NECK: Supple. CHEST: Clear to auscultation. No respiratory distress. HEART: Regular rate and rhythm. No murmur heard. Normal peripheral pulses. ABDOMEN: Soft, nontender, nondistended, normal active bowel sounds. EXTREMITIES: Normal range of motion. No edema. SKIN: Warm, dry, no rash. NEURO: No focal deficits. Alert and oriented x3. [place] Coma Scale Eye Opening: Spontaneous 4 [place] Coma Scale Motor: Obeys Commands 6 [place] Coma Scale Verbal: Oriented 5 [place] Coma Scale Total 15 Course Course Level of Care: Express Care Visit Vital Signs Vital signs: Vital Signs Temperature 36.3 C L 12/21/23 10:44 Pulse Rate 65 12/21/23 10:44 Respiratory Rate 18 12/21/23 10:44 Blood Pressure 155/93 H 12/21/23 10:44 Pulse Oximetry 100 12/21/23 10:44 Oxygen Delivery Room Air 12/21/23 10:44 Temperature 36.3 C L 12/21/23 10:44 Pulse Rate 65 12/21/23 10:44 Respiratory Rate 18 12/21/23 10:44 Blood Pressure 155/93 H 12/21/23 10:44 Pulse Oximetry 100 12/21/23 10:44 Oxygen Delivery Room Air 12/21/23 10:44 Please HANSEL schedule a followup visit with your personal physician for fur
== END 2023-12-21 11:00 | disposition home or self-care (01) ==
PROVIDERS: Emergency Provider Nurse Practitioner Family; PCP Family Medicine
DX: H00.011 Hordeolum externum right upper eyelid (principal); F17.200 Nicotine dependence, unspecified, uncomplicated; K21.9 Gastro-esophageal reflux disease without esophagitis; I10 Essential (primary) hypertension; J45.909 Unspecified asthma, uncomplicated; F41.9 Anxiety disorder, unspecified; F32.A Depression, unspecified
CPT/HCPCS: 99213; G0463

== ENCOUNTER 2025-02-21 08:38 | Emergency (ER) | payer MEDICAID, SELFPAY ==
--- NOTE | ~2025-02-21 | XR_ITS ---
XR lumbar spine 2-3V 02/21/2025 09:34 Indication: Low back pain Procedure: 3 views lumbar spine Comparison: No prior studies for comparison. Findings: Vertebral body and disc heights are preserved. There is mild facet hypertrophy at L4-5 and L5-S1. No evidence for spondylolisthesis. No acute fracture or traumatic malalignment. Sacral foramen are symmetric. Impression: 1: Mild lumbar spondylosis. Reviewed, dictated and finalized at location O. Impression: 1: Mild lumbar spondylosis.
--- NOTE | ~2025-02-21 | XR_ITS ---
EXAMINATION: XR ankle LT min 3V DATE: 02/21/2025 09:33 INDICATION: Pain TECHNIQUE: 4 images of the left ankle were obtained. COMPARISON: None. FINDINGS: Bone mineralization is within normal limits. No fracture. No dislocation. Mild soft tissue swelling about the left ankle. Significant degenerative change. Talar dome is unremarkable. IMPRESSION: 1. No fracture. No dislocation. Mild soft tissue swelling about the left ankle. If symptoms persist or worsen, consider a short-term follow-up study or additional imaging for further assessment. Reviewed, dictated and finalized at location Q. IMPRESSION: 1. No fracture. No dislocation. Mild soft tissue swelling about the left ankle. If symptoms persist or worsen, consider a short-term follow-up study or additio nal imaging for further assessment.
[2025-02-21 08:46] VITALS: BP 103/72; PULSE 67; RESP 20; TEMP 36.6; O2SAT 100
--- OUTSIDE RECORDS SUMMARY | 2025-02-21 08:53 | XMS_ITS | Continuity of Care Document ---
Author Name [facility] Organization [facility] Care Team Providers Care Stucco Worker Name Role Phone [facility] Unavailable Unavailable Problems Combined list of problems from [facility] and [facility] facilities. It does not include entries that were removed or entered in error. Problem Status Onset Date Problem Type Date of Resolution Comments Source Borderline personality Disorder Active Condition [facility] Bronchitis, Acute Active Condition [facility] Cocaine-Related Disorder NOS Active Condition [facility] Depression * (ICD-9-CM 300.4/311.) Active Condition [facility] Diarrhea Active Condition [facility] Genital Herpes Active Condition [facility] Migraine * (ICD-9-CM 346.90) Active Condition [facility] Neck Pain (ICD-9-CM 723.1) Active Condition [facility] SCREENING FOR ALCOHOLISM Active Condition [facility] Allergies, Adverse Reactions, Alerts Combined list of allergies from [facility] facilities. It does not include entries that were removed or entered in error. Substance Category Reaction Severity Reaction type Status Date Reported Comments Source CODEINE Propensity to adverse reactions to drug (finding) active 3 [facility] LATEX GLOVE Propensity to adverse reactions to drug (finding) active 2 [facility] Immunizations Combined list of available immunizations from the [facility] and [facility] facilities. Immunization Series Date Given Administered By Site Reaction Lot Number CVX Code Drug Drier Tender Status Comments Source INFLUENZA, UNSPECIFIED FORMULATION 2011 88 complet ed [facility] DIVISIO N TDAP 2009 115 complet ed Left Deltoid [facility] DIVISIO N INFLUENZA, UNSPECIFIED FORMULATION 2009 88 complet ed [facility] DIVISIO N INFLUENZA, UNSPECIFIED FORMULATION 2008 88 complet ed [facility] DIVISIO N INFLUENZA, UNSPECIFIED FORMULATION 2007 88 complet ed [facility] DIVISIO N INFLUENZA, UNSPECIFIED FORMULATION 2005 88 complet ed [facility] DIVISIO N INFLUENZA, UNSPECIFIED FORMULATION 2004 88 complet ed [facility] DIVISIO N Encounters Combined list of: 1) Encounters from Department of [facility] facilities going backup to the last 18 months, not all [place] inpatient encounters are included; 2) Encounters from the Department [facility] facilities going backup to 280 months. Location Location Details Encounter Type Encounter Number Reason For Visit Attending Provider ADM Date DC Date Status Disposition Source [facility] Outpatient Encounter [id number] 1 10/06 [facility] Procedures Combined list of: 1) Procedures from Department of [facility] facilities going back up to thelast 18 months, not all [place] non-surgical procedures are included; 2) All procedures from the Department [facility] facilities. Procedure Procedure Type Code Date Perfomer Comments Sourc e PSYCHIATRIC DIAGNOSTIC INTERVIEW EXAMINATION 07/24/1999 [facility] Social History Combined list of available smoking, tobacco, and other social history from [facility] and [facility] facilities. Social History Type Response Date Comment Sourc e Tobacco smoking status NHIS CURRENT TOBACCO USER 09/24/2016 [facility] History of tobacco use TOBACCO MEDS OFFE RED BUT DECLINED 09/24/2016 [facility] History of tobacco use QUIT TOBACCO IN T HE LAST 12 MONTHS 11/02/2013 [facility] History of tobacco use QUIT TOBACCO IN T HE LAST 12 MONTHS 08/06/2011 [facility] History of tobacco use QUIT TOBACCO IN T HE LAST 12 MONTHS 05/15/2010 [facility] History of tobacco use CURRENT TOBACCO USER 03/27/2009 [facility] History of tobacco use QUIT TOBACCO >12 MO and <7 YRS AGO 05/02/2008 [facility] History of tobacco use CURRENT TOBACCO USER 04/15/2006 [facility] History of tobacco use 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 [facility] Advance Directives List of completed, amended, or rescinded Advance Directives on record at [facility] facilities. An actual copy of the Directive is not included. Date Advance Directive Provider Source 03/03/2003 [employer] ARLENE SORIA Cris [facility]
--- OUTSIDE RECORDS SUMMARY | 2025-02-21 08:53 | XMS_ITS | Continuity of Care Document ---
Author Name [facility] Organization [facility] Care Team Providers Care Lay Out Carpenter Name Role Phone [facility] Unavailable Unavailable Problems Combined list of problems from [facility] and [facility] facilities. It does not include entries that were removed or entered in error. Problem Status Onset Date Problem Type Date of Resolution Comments Source Borderline personality Disorder Active Condition [facility] Bronchitis, Acute Active Condition [facility] Cocaine-Related Disorder NOS Active Condition [facility] Depression * (ICD-9-CM 300.4/311.) Active Condition [facility] Diarrhea Active Condition [facility] Genital Herpes Active Condition [facility] Migraine * (ICD-9-CM 346.90) Active Condition [facility] Neck Pain (ICD-9-CM 723.1) Active Condition [facility] SCREENING FOR ALCOHOLISM Active Condition [facility] Allergies, Adverse Reactions, Alerts Combined list of allergies from [facility] facilities. It does not include entries that were removed or entered in error. Substance Category Reaction Severity Reaction type Status Date Reported Comments Source CODEINE Propensity to adverse reactions to drug (finding) active 3 [facility] LATEX GLOVE Propensity to adverse reactions to drug (finding) active 2 [facility] Immunizations Combined list of available immunizations from the [facility] and [facility] facilities. Immunization Series Date Given Administered By Site Reaction Lot Number CVX Code Drug Shipwright Status Comments Source INFLUENZA, UNSPECIFIED FORMULATION 2011 88 complet ed [facility] DIVISIO N TDAP 2009 115 complet ed Left Deltoid [facility] DIVISIO N INFLUENZA, UNSPECIFIED FORMULATION 2009 88 complet ed [facility] DIVISIO N INFLUENZA, UNSPECIFIED FORMULATION 2008 88 complet ed [facility] DIVISIO N INFLUENZA, UNSPECIFIED FORMULATION 2007 88 complet ed [facility] DIVISIO N INFLUENZA, UNSPECIFIED FORMULATION 2005 88 complet ed [facility] DIVISIO N INFLUENZA, UNSPECIFIED FORMULATION 2004 88 complet ed [facility] DIVISIO N Encounters Combined list of: 1) Encounters from Department of [facility] facilities going backup to the last 18 months, not all [place] inpatient encounters are included; 2) Encounters from the Department [facility] facilities going backup to 280 months. Location Location Details Encounter Type Encounter Number Reason For Visit Attending Provider ADM Date DC Date Status Disposition Source [facility] Outpatient Encounter [id number] 10/06 [facility] Procedures Combined list of: 1) Procedures from Department of [facility] facilities going back up to thelast 18 months, not all [place] non-surgical procedures are included; 2) All procedures from the Department [facility] facilities. Procedure Procedure Type Code Date Perfomer Comments Sourc e PSYCHIATRIC DIAGNOSTIC INTERVIEW EXAMINATION 07/24/1999 [facility] Social History Combined list of available smoking, tobacco, and other social history from [facility] and [facility] facilities. Social History Type Response Date Comment Sourc e Tobacco smoking status NHIS CURRENT TOBACCO USER 09/24/2016 [facility] History of tobacco use TOBACCO MEDS OFFE RED BUT DECLINED 09/24/2016 [facility] History of tobacco use QUIT TOBACCO IN T HE LAST 12 MONTHS 11/02/2013 [facility] History of tobacco use QUIT TOBACCO IN T HE LAST 12 MONTHS 08/06/2011 [facility] History of tobacco use QUIT TOBACCO IN T HE LAST 12 MONTHS 05/15/2010 [facility] History of tobacco use CURRENT TOBACCO USER 03/27/2009 [facility] History of tobacco use QUIT TOBACCO >12 MO and <7 YRS AGO 05/02/2008 [facility] History of tobacco use CURRENT TOBACCO USER 04/15/2006 [facility] History of tobacco use 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 [facility] Advance Directives List of completed, amended, or rescinded Advance Directives on record at [facility] facilities. An actual copy of the Directive is not included. Date Advance Directive Provider Source 03/03/2003 ADVANCE DIRECTIVE ARLENE SORIA Cris [facility]
--- OUTSIDE RECORDS SUMMARY | 2025-02-21 08:54 | XMS_ITS | Clinical Summary ---
Author Organization [facility] Address [address] [place] [address] Care Team Providers Care Sprinkler Irrigation Equipment Mechanic Name Role Phone Bernardo Aleman MD Unavailable [phone] April Alexander MD Primary Care Provider [phone] Allergies Active Allergy Reactions Criticality Noted Date Comments Latex Rash,Edema High Reaction: Rash, Medications No known medications Active Problems Problem Noted Date Diagnosed Date Kidney stone 08/11/2020 Overview (08/11/2020): Added automatically from request for surgery [id number] Acute cystitis with hematuria 08/10/2020 Nephrolithiasis 03/12/2020 Pyelonephritis 03/11/2020 Leukocytosis 03/11/2020 Hypokalemia 03/11/2020 Nausea & vomiting 03/11/2020 S/P hysterectomy 01/27/2020 Chronic constipation 01/26/2020 Chronic pelvic pain in female 01/26/2020 Dyschezia 01/26/2020 Dysuria 01/26/2020 Essential hypertension 01/26/2020 History of endometriosis 01/26/2020 Nocturia 01/26/2020 Urinary frequency 01/26/2020 Urinary urgency 01/26/2020 Migraine with aura 01/26/2018 Overview (01/26/2018): - Patient has a history of migraine with aura requiring lumbar punctures - Previous visit to [facility] with migraine that improved with Fioricet [facility] 01/26 - Presenting today with severe headache with aura - Will give Fioricet and monitor for improvement of symptoms - Patient was put on Nifedipine for blood pressure control at last visit - Given frequency of migraines and presence of patient's constant stress and lack of sleep with , recommend switching to Labetalol 200 mg twice daily for blood pressure control and migraine prophylaxis Preeclampsia in period 01/23/2018 Overview (01/26/2018): [facility] 01/22 - headache resolved with Fioricet - BPs labile, but normal to mild range - PreE labs wnl - CTM BPs closely - holding mag for now - possible afternoon discharge with strict return precautions and BP checks in [facility]NICU when visiting baby [facility] 01/26 - Bps in normal range today - CBC and CMP wnl - Headache likely 2/2 history of migraines - Will continue to monitor Bps closely; no need for Mg hemorrhage 01/22/2018 Overview (01/26/2018): - Exp lap 01/17/18 with Bakri balloon, D&C, B-Peña suture and blood transfusion - lochia minimal, H/H stable compared to labs at [facility] 01/26 - Minimal vaginal bleeding today - CBC wnl, Hgb 8.0 - Will continue to monitor History of blood transfusion 01/22/2018 Depression 01/22/2018 Overview (01/23/2018): - mood stable, no SI/HI - for EPDS today Anemia 01/22/2018 Overview (01/23/2018): - cont FeSO4 TID - asymptomatic LLQ pain Surgical History Surgery Date Site/Laterality Comments APPENDECTOMY Appendectomy HYSTERECTOMY Medical History Medical History Date Comments Kidney stone Pyelonephritis Asthma Constipation Back pain Anxiety Depression Endometriosis Family History Medical History Relation Name Comments Diabetes Father Melanoma Father Melanoma; Breast cancer Maternal Grandmother Breast cancer Mother Cancer Mother breast Hypertension Mother Hypertension; Breast cancer Sister Relation Name Status Comments Father Maternal Grandfather Maternal Grandmother Mother Sister Social History Tobacco Use Types Packs/Day Years Used Date Smoking Tobacco: Every Day Cigarettes 0.5 19 Started: 07/31/2020 Smokeless Tobacco: Never Tobacco Cessation:Ready to Q uit: Yes; Counseling Given: No Alcohol Use Standard Drinks/Week Comments No 0 (1 standard drink = 0.6 oz pur e alcohol) AUDIT-C Answer Date Recorded Q1: How often do you have a drink containing alc ohol? Monthly or less 09/06/2020 Average Number of Drinks Not on file 021 Frequency of Binge Drinking Not on file 08/28 PHQ-2 Answer Date Recorded PHQ-2 Total Score (If total score is 3 or more points, staff should administer the PHQ-9) 0 03/11/2020 Personal Safety Answer Date Recorded Have you ever been in or are you currently in a harmful physical or emotional relationship or is someone making you feel afraid or unsafe? 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 Gender Identity Not on file Sexual Orientation Not on file Obstetrics History Para Term AB IAB SAB Ectopic Multiple Livin g Live Births 3 2 1 1 1 1 0 1 1 Date Outcome GA Total Labor Labor/2nd/3rd Weight Sex Type Anes PTL Shahana A1 A5 Name Clin SAB Term 2017 35w 3d 3h 17m 2h 19m/0h 43m/0h 15m 1.966 kg (4 lb 5.4 oz) F Vag-S pont Epidur al N Livin g 8 9 IKERM AN,GI RLPAT Beena Siu MD Complications:Pre eclampsia/ Eclampsia,Post Hemorrhage Delivery Location:This [facility] ([facility]) Last Filed Vital Signs Vital Sign Reading Time Taken Comments Blood Pressure 114/76 12/18/2022 8:15 PM CDT Pulse 96 12/18/2022 8:15 PM CDT Temperature 36.9 C (98.4 F) 12/18/2022 8:15 PM CDT Respiratory Rate 20 12/18/2022 8:15 PM CDT Oxygen Saturation 98% 12/18/2022 8:15 PM CDT Inhaled Oxygen Concentration - - Weight 79.4 kg (175 lb) 12/18/2022 8:15 PM CDT Height 167.6 cm (5' 6) 12/18/2022 8:15 PM CDT Body Mass Index 28.25 12/18/2022 8:15 PM CDT Plan of Treatment Health Maintenance Due Date Last Done Comments Colon Cancer Screening-Colonoscopy 1975 Hepatitis C Screening 1975 Hepatitis B Screening 02/02/1994 Regular Well Visit/Exam 18-64 02/02/1994 Pneumococcal vaccine <65 (1 of 2 - PCV) 02/02/1995 Depression Screening 03/10/2021 03/10/2020 Breast Cancer Screening-Mammogram 10/01/2024 024, 09/27/2016 Influenza Vaccine (#1) 2025 DTaP/Tdap/Td Vaccine (2 - Td or Tdap) 12/24/2027 Medical Devices Explanted Type Area Torsion Spring Coiling Machine Setter Device Identifier Shelf Expiration Date Model / Serial / Lot [employer] Tawana 180-232 Contour 7fr 24cm Large Inner Lumen Low Profile Bladder Ian Taper Latex Free - [id number] Implanted:Qty: 1 on 08/10/2020 by Bernardo Aleman MD at [facility] Explanted:Qty: 1 on 08/29/2020 by Bernardo Aleman MD Left: Ureter [employer] Tawana 01/02/2023 180-232 / / [id number] [employer] Tawana 180-223 Contour 6fr 26cm Large Inner Lumen Low Profile Bladder Ian Taper Latex Free - [id number] Implanted:Qty: 1 on 08/29/2020 by Bernardo Aleman MD at [facility] Explanted:Qty: 1 on 09/06/2020 by Bernardo Aleman MD Left: Ureter [employer] Tawana 05/10/2023 180-223 / / [id number] Procedures Procedure Name Priority Date/Time Associated Diagnosis Comments SCREENING MAMMOGRAM BILATERAL W JUSTO Schedule Routine, Read Routine (OP Routine) 10/02/2023 2:28 PM CDT Encounter for screening mammogram for malignant neoplasm of breast from Last 3 Months or Most Recently Relevant to Health Maintenance Results * Screening Mammogram Bilateral W Justo (10/02/2023 2:28 PM CDT) Anatomical Region Laterality Modality Breast Bilateral Mammography 10/10/2023 9:24 AM CDT Impressions 10/10/2023 9:24 AM CDT There is no mammographic evidence of malignancy. A 1 year screening mammogram is recommended. BI-RADS: 1 - Negative. The patient has been or will be contacted. The patient will be entered into a reminder system with a target due date of 1 year for her next mammogram. Electronically signed by: Mckenzie Lester M.D. Narrative 10/10/2023 9:24 AM CDT EXAMINATION: SCREENING MAMMOGRAM BILATERAL W JUSTO ORDERING HEALTHCARE PROVIDER: APRIL ALEXANDER HISTORY: Routine screening mammography. COMPARISON: 09/27/2016 TECHNIQUE: CC and MLO views of the bilateral breasts were obtained with digital technique using breast tomosynthesis with C view. Computer aided detection was utilized. FINDINGS: DENSITY: There are scattered fibroglandular elements in the bilateral breasts. BREASTS: There are no suspicious masses, suspicious calcifications, or other suspicious findings in either breast. There has been no suspicious interval change. April Alexander MD IMG MAMMO PROCEDURES Final Re sult from Last 3 Months or Most Recently Relevant to Health Maintenance Insurance [facility] MEDICAID [facility] MEDICAID [facility] Advance Directives For more information, please contact: [phone] * Full Code (Latest Code Status on File) Date Activated Date Inactivated Comments 08/10/2020 12:12 AM 08/11/2020 4:00 PM * Full Code Date Activated Date Inactivated Comments 03/11/2020 4:52 AM 03/12/2020 5:16 PM * Full Code Date Activated Date Inactivated Comments 01/17/2018 3:07 AM 01/20/2018 10:14 PM * Full Code Date Activated Date Inactivated Comments 01/15/2018 2:36 AM 01/17/2018 3:07 AM Full CPR in case of cardiopulmonary arrest Care Teams Sprinkler Irrigation Equipment Mechanic Relationship Specialty Start Date End Date April Alexander MD [address] [address] PCP - General Obstetrics and Gynecology 09/16/23 Bernardo Aleman MD Consulting Physician Urology 08/11/20
--- OUTSIDE RECORDS SUMMARY | 2025-02-21 08:54 | XMS_ITS | Clinical Summary ---
Author Organization [facility] Address [address] [place] [address] Care Team Providers Care Head Custodian Name Role Phone Unavailable Primary Care Provider Unavailabl e Source Comments [facility],non-owned Affiliates and Associated Physician Practices is amultiple site organization consisting of ambulatory clinics and hospital sitesin [place], [place], [place] and [place]. This disclosure is being madepursuant to the Care Everywhere program and may not contain all information available regarding this patient. Last updated 18.[facility] Allergies Active Allergy Reactions Criticality Noted Date Comments Codeine Nausea and/or Vomiting Medium 03/03/2003 Latex Swelling,Rash High 01/25/2020 Reaction: Rash, Medications * Be aware that medications may not be up to date on this document. Alwaysverify current medications with the patient. vitamin D3 (CHOLECALCIFERO L) 25 MCG (1000 UNITS) tablet Take by mouth once daily Active ascorbic acid (VITAMIN C) 250 MG tablet Take 250 mg by mouth once daily Active zinc sulfate (ZINCATE) 220 (50 ZN) MG capsule Take 220 mg by mouth once daily Active albuterol HFA (PROVENTIL;VENT JULISA;PROAIR) 108 (90 Base) MCG/ACT inhaler Inhale 2 puffs by mouth every 6 hours as needed Active acetaminophen (TYLENOL) 325 MG tabletIndicatio ns:S/P hysterectomy,Ch ronic pelvic pain in female,Pelvic mass in female Take 2 tablets by mouth every 6 hours Maximum allowable Acetaminophen amount = 4 Grams (4000 mg) / 24 hours. 90 tablet 0 Active gabapentin (NEURONTIN) 300 MG capsule Take 1 (one) capsule by mouth 2 times daily 60 capsule 5 1 Active nicotine (NICODERM CQ) 21 MG/24HR patch APPLY 1 PATCH EVERY DAY 0 Active fluticasone propionate (FLONASE) 50 MCG/ACT nasal spray USE ONE SPRAY IN EACH NOSTRIL TWO TIMES A DAY FOR TEN DAYS 9 Active sertraline (ZOLOFT) 100 MG tablet Take 100 mg by mouth once daily 1 Active bisacodyl EC (DULCOLAX) 5 MG tablet Take all 4 tablets at noon the day before your colonoscopy. 4 tablet 1 Active pantoprazole EC (PROTONIX) 40 MG tabletIndicatio ns:Gastroesopha geal reflux disease, unspecified whether esophagitis present Take 1 (one) tablet by mouth once daily MUST MAKE FOLLOW UP APPOINTMENT FOR FURTHER REFILLS. PLEASE CALL [phone] TO SCHEDULE 30 tablet 1 Active Active Problems Patient Care Coordination No te Formatting of this note migh t be different from the original. Nopp/mfcc 08/2017 Problem Noted Date Diagnosed Date S/P hysterectomy 01/27/2020 Essential hypertension 01/26/2020 Chronic pelvic pain in female 01/26/2020 History of endometriosis 01/26/2020 Pelvic mass in female 01/26/2020 Abnormal uterine bleeding 01/26/2020 Depression 01/26/2020 Urinary frequency 01/26/2020 Urinary urgency 01/26/2020 Chronic constipation 01/26/2020 Dysuria 01/26/2020 Dyschezia 01/26/2020 Nocturia 01/26/2020 Resolved Problems Problem Noted Date Diagnosed Date Resolved Date AMA (advanced maternal age) primigravida 35+ 8 01/26/2020 Abnormal quad screen 09/25/2017 020 Partial placenta previa 09/25/201712/29 Evaluate anatomy not seen on prior sonogram 01/26/2020 Suspected placental problem not found 01/26/2020 Family History Medical History Relation Name Comments Cancer - Skin, Melanoma Father Cancer - Breast Maternal Grandmother Cancer - Breast Mother Cancer - Breast Sister Relation Name Status Comments Father Maternal Grandmother Mother Sister Alive Social History Tobacco Use Types Packs/Day Years Used Date Smoking Tobacco: Every Day Cigarettes 0.3 20 Smokeless Tobacco: Never Tobacco Cessation:Ready to Q uit: Yes; Counseling Given: Yes Alcohol Use Standard Drinks/Week Comments Yes 1 (1 standard drink = 0.6 oz pur e alcohol) occ Comments No Sex and Gender Information Value Date Recorded Sex Assigned at Not on file Legal Sex Female 7:15 AM CDT Gender Identity Not on file Sexual Orientation Not on file Last Filed Vital Signs Vital Sign Reading Time Taken Comments Blood Pressure 183/94 10/30/2020 1:03 PM CDT Pulse 68 10/30/2020 12:46 PM CDT Temperature 36.3 C (97.3 F) 10/30/2020 9:23 AM CDT Respiratory Rate 9 10/30/2020 10:00 AM CDT Oxygen Saturation 100% 10/30/2020 1:06 PM CDT Inhaled Oxygen Concentration - - Weight 77.6 kg (171 lb) 10/30/2020 9:23 AM CDT Height 168.9 cm (5' 6.5) 10/30/2020 9:23 AM CDT Body Mass Index 27.19 10/30/2020 9:23 AM CDT Plan of Treatment Health Maintenance Due Date Last Done Comments COLOGUARD (AGES 45-75) - COL ON CA SCREENING 1976 CT COLONOGRAPHY - COLON CA SCREENING 1975 FIT - COLON CA SCREENING 1975 FLEX SIG - COLON CA SCREENING 1976 LIPID TESTING 1975 MAMMOGRAM 1975 HEPATITIS C SCREENING 01/29/1994 DTAP/TDAP/TD VACCINES (1 - Tdap) 02/02/1995 HEPATITIS B VACCINE (1 of 3 - 19+ 3-dose series) 02/02/1995 SCREENING FOR DIABETES 09/14/2023 09/13/2020 COVID-19 VACCINE (1 - 2023-2 5 season) 2024 DEPRESSION SCREENING 06/30/2024 INFLUENZA VACCINE (#1) 2025 08/06/2011 ZOSTER VACCINE (1 of 2) 02/02/2026 COLON MONITORING 10/30/2030 10/30/2020, 10/30/2020 COLONOSCOPY - COLON CA SCREENING 10/30/2030 10/30/2020, 10/30/2020 Colorectal Cancer Screening 10/30/2030 HIV SCREENING Completed 01/12/2020 HIB VACCINE Aged Out No longer eligi ble based on patient's age to complete this topic HPV VACCINE Aged Out No longer eligi ble based on patient's age to complete this topic MENINGOCOCCAL (Group B) VACCINE SHARED DECISION-MAKING Aged Out No longer eligible based on patient's age to complete this topic MENINGOCOCCAL GROUPS A/C/Y/W VACCINE Aged Out No longer eligible b ased on patient's age to complete this topic Goals Goal Patient Goal Type Associated Problems Recent Progress Patient-Stated? Author Medication Management General On track( 021 10:36 AM CDT) Moon Barr, RN Note: Expected end date: ongoing Interventions: Take all medications as prescribed Let your doctor know right away about any changes in your medications Make sure to request a refill of your medication at least one week prior to your last dose Procedures Procedure Name Priority Date/Time Associated Diagnosis Comments ENDOSCOPY, COLON, DIAGNOSTIC Routine 10/30/2020 11:38 AM CDT COMPREHENSIVE METABOLIC PANEL Routine 09/13/2020 11:41 AM CDT Generalized abdominal pain Chronic pelvic pain in female Diarrhea, unspecified type Loss of weight Gastroesophageal reflux disease, unspecified whether esophagitis present HIV-1 HIV-2 ANTIBODY + HIV P24 AG PANEL Routine 01/12/2020 11:04 AM CDT Well woman exam with routine gynecological exam Routine screening for STI (sexually transmitted infection) from Last 3 Months or Most Recently Relevant to Health Maintenance Results * ENDOSCOPY, COLON, DIAGNOSTIC (10/30/2020 11:38 AM CDT) Report Endoscopy POC Endoscopy Department Report _ Patient Name: Cindy Zapata Procedure Date: 10/30/2020 11:38 AM Date of : 1975 Classification: Outpatient Gender: Female Ethnicity: Not or Race: White _ Providers: Fernanda Castaneda MD, Yana Haro (Fellow) Referring MD: Melvina Panda (Referring MD) Procedure: Colonoscopy Indications: Generalized abdominal pain, Chronic diarrhea, Hematochezia, Weight loss Medications: Monitored Anesthesia Care Description of Procedure: Pre-Anesthesia Assessment: - Prior to the procedure, a History and Physical was performed, and patient medications and allergies were reviewed. The patient's tolerance of previous anesthesia was also reviewed. The risks and benefits of the procedure and the sedation options and risks were discussed with the patient. All questions were answered, and informed consent was obtained. Prior Anticoagulants: The patient has taken no previous anticoagulant or antiplatelet agents. ASA Grade Assessment: II - A patient with mild systemic disease. After reviewing the risks and benefits, the patient was deemed in satisfactory condition to undergo the procedure. After I obtained informed consent, the scope was passed under direct vision. Throughout the procedure, the patient's blood pressure, pulse, and oxygen saturations were monitored continuously. The [id number] was introduced through the anus and advanced to the terminal ileum, with identification of the appendiceal orifice and IC valve. The colonoscopy was performed without difficulty. The patient tolerated the procedure well. The quality of the bowel preparation was evaluated using the BBPS (Levering Bowel Preparation Scale) with scores of: Right Colon = 2 (minor amount of residual staining, small fragments of stool and/or opaque liquid, but mucosa seen well), Transverse Colon = 3 (entire mucosa seen well with no residual staining, small fragments of stool or opaque liquid) and Left Colon = 3 (entire mucosa seen well with no residual staining, small fragments of stool or opaque liquid). The total BBPS score equals 8. The quality of the bowel preparation was good. Findings: The perianal and digital rectal examinations were normal. The terminal ileum appeared normal. The colon (entire examined portion) appeared normal. Biopsies for histology were taken with a cold forceps from the entire colon for evaluation of microscopic colitis. Estimated blood loss was minimal. Two sessile polyps were found in the ascending colon. The polyps were 3 to 4 mm in size. These polyps were removed with a jumbo cold forceps. Resection and retrieval were complete. Estimated blood loss was minimal. A 4 mm polyp was found in the transverse colon. The polyp was sessile. The polyp was removed with a jumbo cold forceps. Resection and retrieval were complete. Estimated blood loss was minimal. A 3 mm polyp was found in the rectum. The polyp was sessile. The polyp was removed with a jumbo cold forceps. Other hyperplastic polyps < 4mm seen in rectum Resection and retrieval were complete. Estimated blood loss was minimal. Non-bleeding internal hemorrhoids were found during retroflexion. The hemorrhoids were small. Estimated Blood Loss: Estimated blood loss was minimal. Complications: No immediate complications. Impression: - The examined portion of the ileum was normal. - The entire examined colon is normal. Biopsied. - Two 3 to 4 mm polyps in the ascending colon, removed with a jumbo cold forceps. Resected and retrieved. - One 4 mm polyp in the transverse colon, removed with a jumbo cold forceps. Resected and retrieved. - One 3 mm polyp in the rectum, removed with a jumbo cold forceps. Resected and retrieved. - Non-bleeding internal hemorrhoids. Recommendation: - Patient has a contact number available for emergencies. The signs and symptoms of potential delayed complications were discussed with the patient. Return to normal activities tomorrow. Written discharge instructions were provided to the patient. - Discharge patient to home (with escort). - Resume previous diet. - Await pathology results. - Repeat colonoscopy in 3 - 5 years for surveillance pending pathology results review. - Return to GI clinic as previously scheduled. Attending Participation: I was present and participated during the entire procedure, including non-romero portions. Procedure Code(s): --- Professional --- 31736, Colonoscopy, flexible; with biopsy, single or multiple Diagnosis Code(s): --- Professional --- K64.8, Other hemorrhoids K63.5, Polyp of colon K62.1, Rectal polyp R10.84, Generalized abdominal pain K52.9, Noninfective gastroenteritis and colitis, unspecified K92.1, Melena (includes Hematochezia) R63.4, Abnormal weight loss CPT copyright 2019 [employer]. All rights reserved. The codes documented in this report are preliminary and upon cigar sorter review may be revised to meet current compliance requirements. ____ Fernanda Castaneda MD 10/30/2020 12:34:50 PM Note Initiated On: 10/30/2020 11:38 AM Number of Addenda: [id number] [place] [address] [facility] 10/30/2020 11:3 8 AM CDT us Fernanda Castaneda MD GI PROCEDURE ORDERABLES Ed ited Result - Final [facility] * (ABNORMAL) COMPREHENSIVE METABOLIC PANEL (09/13/2020 11:41 AM CDT) BUN 8 7 - 26 mg/dL 09/13/2020 1:37 PM [facility] Creatinine 0.6 0.6 - 1.2 mg/dL 09/13/2020 1:37 PM [facility] Sodium 142 136 - 145 mmol/L 09/13/2020 1:37 PM [facility] Potassium 3.8 3.5 - 4.5 mmol/L 09/13/2020 1:37 PM [facility] Chloride 110(H) 98 - 107 mmol/L 09/13/2020 1:37 PM [facility] CO2 17(L) 22 - 29 mmol/L 09/13/2020 1:37 PM [facility] Glucose 98 70 - 115 mg/dL 09/13/2020 1:37 PM [facility] Calcium 9.7 8.4 - 10.2 mg/dL 09/13/2020 1:37 PM [facility] Protein Total 7.8 6.0 - 8.3 g/dL 09/13/2020 1:37 PM [facility] Albumin 4.2 3.4 - 5.0 g/dL 09/13/2020 1:37 PM [facility] Bilirubin Total 0.5 0.2 - 1.2 mg/dL 09/13/2020 1:37 PM [facility] Alkaline Phosphatase 83 40 - 150 Units/L 09/13/2020 1:37 PM [facility] ALT 21 0 - 55 Units/L 09/13/2020 1:37 PM [facility] AST 23 5 - 34 Units/L 09/13/2020 1:37 PM [facility] Anion Gap 19(H) 8 - 18 09/13/2020 1:37 PM [facility] BUN/Creatinine Ratio 13 7 - 23 09/13/2020 1:37 PM [facility] Osmolality Calculated 292 270 - 300 mOsm/kg 09/13/2020 1:37 PM [facility] Albumin/Globulin Ratio 1.2 1.1 - 2.3 09/13/2020 1:37 PM [facility] eGFR >60 >60 mL/min/1.7 3 m2 09/13/2020 1:37 PM [facility] Blood BLOOD SPECIMEN / Unknown Lab Venipuncture / Unknown 09/13/2020 11:41 AM CDT 09/13/2020 12:34 PM T us Julieta Souza PA-C LAB - CHEMISTRY ORDERABLE S Final Result [facility] [address] [place] [phone], [facility] [phone] * HIV-1 HIV-2 ANTIBODY + HIV P24 AG PANEL (01/12/2020 11:04 AM CDT) HIV1/2 Ab + P24 Ag Non Reactive Non Reactive 01/12/2020 12:15 PM [facility] Blood BLOOD SPECIMEN / Unknown Venipuncture / Unknown 01/12/2020 11:04 AM CDT 01/12/2020 11:24 AM CDT Narrative [facility] - 01/12/2020 12:15 PM CDT No Laboratory evidence of HIV infection. us Xuan Briones Cynthia DO LAB - CHEMISTRY ORDERABLES Final Result [facility] [address] [place] [address] from Last 3 Months or Most Recently Relevant to Health Maintenance Insurance [facility]
--- OUTSIDE RECORDS SUMMARY | 2025-02-21 08:54 | XMS_ITS | Clinical Summary ---
Author Organization [facility] Address [address] [place] [address] Phone Care Team Providers Care Grip Name Role Phone April Alexander MD Primary Care Provider [phone] Family History Medical History Relation Name Comments Breast Cancer Maternal Grandmother Breast Cancer Mother Breast Cancer Sister Relation Name Status Comments Maternal Grandmother Mother Sister Social History Tobacco Use Types Packs/Day Years Used Date Smoking Tobacco: Never Assessed Comments No Sex and Gender Information Value Date Recorded Sex Assigned at Not on file Legal Sex Female 10:17 PM CDT Gender Identity Not on file Sexual Orientation Not on file Plan of Treatment Health Maintenance Due Date Last Done Comments Hepatitis C Virus (HCV) Screening 1975 Hepatitis B Immunization (1 of 3 - 19+ 3-dose series) 02/02/1995 Pap Smear 02/02/1997 Cervical Cancer Screening (CCS) 02/02/2006 HPV/Cotest 02/02/2006 Mammogram 09/27/2017 09/27/2016 Cologuard 02/02/2021 Colonoscopy 02/02/2021 Colorectal Cancer Screening 02/02/2021 Immunochemical Fecal Occult Blood 02/02/2021 SARS-COV-2 Immunization ( season) 2024 Influenza Immunization (#1) 2025 09/03/2021 Respiratory Syncytial Virus (RSV) Immunization (Adult) (1 - 1-dose 75+ series) 02/02/2051 Discussion re Starting/Frequ ency of Mammograms Completed 09/27/2016 DTaP/Tdap/Td Immunization Discontinued 12/23/2017 TdaP Immunization Completed 12/23/2017 Human Papillomavirus (HPV) Immunization Aged Out No longer eligible b ased on patient's age to complete this topic Meningococcal Immunization (ACWY) Aged Out No longer eligible based on patient's age to complete this topic Pneumococcal Immunization Combined Aged Out No longer eligible based on patient's age to complete this topic Rotavirus Immunization Aged Out No lo nger eligible based on patient's age to complete this topic Procedures Procedure Name Priority Date/Time Associated Diagnosis Comments [facility] SCREENING BILATERAL DIGITAL W CAD Routine 09/27/2016 3:06 PM CDT Encounter for screening mammogram for malignant neoplasm of breast from Last 3 Months or Most Recently Relevant to Health Maintenance Results * [facility] SCREENING BILATERAL DIGITAL W CAD (09/27/2016 3:06 PM CDT) Anatomical Region Laterality Modality breast Bilateral Mammography 09/27/2016 2:43 PM CDT Narrative 09/28/2016 7:57 AM CDT - [facility] SCREENING BILATERAL DIGITAL W CAD BILATERAL DIGITAL SCREENING MAMMOGRAM WITH CAD WITH MEDIOLATERAL OBLIQUE CRANIOCAUDAL: 09/27/2016 The study was acquired using digital technology and interpreted from soft copy. Current study was also evaluated with ICAD version 7.2. CLINICAL: Baseline screening. Patient has no complaints. No personal history of cancer. Mother with pre-menopausal breast cancer. Sister with breast cancer. Maternal grandmother had breast cancer. COMPARISONS: No prior exams were available for comparison. BREAST TISSUE:There are scattered fibroglandular densities in both breasts. FINDINGS: No significant masses, calcifications, or other findings are seen in either breast. IMPRESSION: BI-RAD 1 NEGATIVE There is no mammographic evidence of malignancy. A 1 year screening mammogram is recommended. The patient has been or will be contacted. The patient will be entered into a reminder system with a target due date of 1 year for her next screening exam. Electronically signed by: Cindy maldonado/dino:09/27/2016 16:37:50 Employee Relations Assistant: Rowena Sands(Renan), [facility] letter sent: Normal Exam Reading location: [facility] BI-RADS: 1 Negative Procedure Note Cindy Coker MD - 09/28/2016 - [facility] SCREENING BILATERAL DIGITAL W CAD BILATERAL DIGITAL SCREENING MAMMOGRAM WITH CAD WITH MEDIOLATERAL OBLIQUE CRANIOCAUDAL: 09/27/2016 The study was acquired using digital technology and interpreted from soft copy. Current study was also evaluated with ICAD version 7.2. CLINICAL: Baseline screening. Patient has no complaints. No personal history of cancer. Mother with pre-menopausal breast cancer. Sister with breast cancer. Maternal grandmother had breast cancer. COMPARISONS: No prior exams were available for comparison. BREAST TISSUE:There are scattered fibroglandular densities in both breasts. FINDINGS: No significant masses, calcifications, or other findings are seen in either breast. IMPRESSION: BI-RAD 1 NEGATIVE There is no mammographic evidence of malignancy. A 1 year screening mammogram is recommended. The patient has been or will be contacted. The patient will be entered into a reminder system with a target due date of 1 year for her next screening exam. Electronically signed by: Cindy maldonado/dino:09/27/2016 16:37:50 Employee Relations Assistant: Rowena Sands(Renan), [facility] letter sent: Normal Exam Reading location: [facility] BI-RADS: 1 Negative Yuliet Cheney MD IMG MAMMO ORDERABLES Final Result from Last 3 Months or Most Recently Relevant to Health Maintenance Insurance MEDICAID [facility] Care Teams Grip Relationship Specialty Start Date End Date April Alexander MD [address] [place] [address] PCP - General Family Medicine 09/30/23
--- NOTE | 2025-02-21 08:56 | ED.LOWEXIN ---
HPI - Extremity Injury (Lower) General Chief Complaint: Extremity Injury, Lower Stated Complaint: Left Knee,Ankle,Leg Source: patient Mode of arrival: ambulatory Limitations: no limitations History of Present Illness HPI Narrative: 50-year-old female presented for complaint of pain to left low back, hip, knee, and left ankle. Onset 2 days. Pain is in the left low back and will radiate to the left outer or inner thigh with movements. Endorses a twisting injury. She states she was moving furniture outside when she twisted the ankle and nearly fell but was wedged against her home. She denies fall, but Says she has had severe pain to the sites since then. Endorses pain with any movement or weight-bearing. She has taken Tylenol, ibuprofen, back and body, soaked in Epson salt, and he denies to the areas without improvement. Last medication was a 100. Denies numbness, tingling, weakness of the lower extremities, or change in gait, saddle paresthesia or loss of bowel or bladder. Related Data Home Medications ?Medication ?Instructions ?Recorded ?Confirmed ?Last Taken ?Type nicotine 21 mg/24 hr daily 1 patch transdermal DAILY 12/21/23 12/21/23 Unknown History transdermal patch sertraline 50 mg tablet 50 mg PO DAILY 12/21/23 12/21/23 Unknown History Allergies Allergy/AdvReac Type Severity Reaction Status Date / Time codeine Allergy Unknown Verified 12/21/23 10:53 Latex, Natural Rubber Allergy Anaphylaxis Verified 12/21/23 10:53 Review of Systems Review of Systems: CONSTITUTIONAL: Denies body aches, fever, chills EYES: Denies visual changes CARDIOVASCULAR: Denies chest pain, palpitations, or edema. RESPIRATORY: Denies cough or dyspnea. GASTROINTESTINAL: Denies abdominal pain, nausea, vomiting, or diarrhea. SKIN: Denies rash, itching, or wounds. MUSCULOSKELETAL: reports back pain, left hip, and ankle NEUROLOGIC: Denies headache, numbness, tingling, or weakness. All systems reviewed & are unremarkable except as noted in HPI and below PMFSH Past Medical History Medical History Anxiety and depression GERD (gastroesophageal reflux disease) Hypertension Kidney stones Seasonal asthma Surgical History Surgical History H/O exploratory laparotomy X2 endometriosis H/O: hysterectomy History of appendectomy S/P colon resection Family History Family History Other Breast cancer Social History Social History Smoking status: Current every day smoker Comments At time of signature, I have reviewed and agree with nursing past medical, surgical, social and family history unless otherwise noted. Please see nursing chart for further information. There is no relevant family history pertinent to the presenting complaint Exam Narrative: GENERAL: Guarding, appears in pain, tearful at times CHEST: Speaks in full sentences. No respiratory distress. HEART: Regular rate and rhythm. Normal and equal peripheral pulses. MUSC: No Vertebral point tenderness. BLEs with normal strength and sensation but guarding. Pt tolerates seated position in w/c. endorses pain with any movement at hip and ankle. Tender with light palpation to the left posterior and lateral hip. Reports pain with movement of the left ankle; no swelling or ecchymosis. No LE edema, no ecchymosis; alignment normal, pulse palpable and equal bilaterally, skin warm, dry, pink. Capillary refill less than 3 seconds. Gait steady. SKIN: Warm, dry, no rash. Abrasion left knee (she said is old) NEURO: Alert and oriented x3. Course Course Emergency Course: Patient is aware of diagnosis, understands and agrees to treatment plan. Anticipatory guidance given. Patient agrees to follow-up as directed and is aware of reasons to seek care at the emergency department. Portions of this record may have been created with voice recognition software Level of Care: Express Care Visit Vital Signs Vital signs: Vital Signs Temperature 97.9 F 02/21/25 08:46 Pulse Rate 67 02/21/25 08:46 Respiratory Rate 20 02/21/25 08:46 Blood Pressure 103/72 02/21/25 08:46 Pulse Oximetry 100 02/21/25 08:46 Oxygen Delivery Room Air 02/21/25 08:46 Temperature 97.9 F 02/21/25 08:46 Pulse Rate 67 02/21/25 08:46 Respiratory Rate 20 02/21/25 08:46 Blood Pressure 103/72 02/21/25 08:46 Pulse Oximetry 100 02/21/25 08:46 Oxygen Delivery Room Air 02/21/25 08:46 Reviewed MDM - Extremity Injury (Lower) MDM Narrative Medical decision making narrative: Discussed physical exam findings and x-rays. GARETH applied left ankle. Advised supportive measures and signs/symptoms to go to the ER. Pt is appropriate for outpt treatment and f/u. Differential Diagnosis Differential diagnosis: Likely ankle sprain and strain, acute internal derangement of knee, fracture of hip, ankle fracture and other ( Lumbar radiculopathy, sciatica, piriformis syndrome, diskitis, muscle strain, degenerative joint disease, cauda equina, renal colic) Imaging Data Radiologist's impression: Patient: Cindy Zapata : 1975 MR#: [id number] Age: 50 Acct:[id number] Loc: EXPBE ADM Date: 02/21/25Attending Dr: XR lumbar spine 2-3V 02/21/2025 09:34 Indication: Low back pain Procedure: 3 views lumbar spine Comparison: No prior studies for comparison. Findings: Vertebral body and disc heights are preserved. There is mild facet hypertrophy at L4-5 and L5-S1. No evidence for spondylolisthesis. No acute fracture or traumatic malalignment. Sacral foramen are symmetric. Impression: 1: Mild lumbar spondylosis. --- Patient: Cindy Zapata : 1975 MR#: [id number] Age: 50 Acct:[id number] Loc: ADM Date: 02/21/25Attending Dr: EXAMINATION: XR ankle LT min 3V DATE: 02/21/2025 09:33 INDICATION: Pain TECHNIQUE: 4 images of the left ankle were obtained. COMPARISON: None. FINDINGS: Bone mineralization is within normal limits. No fracture. No dislocation. Mild soft tissue swelling about the left ankle. Significant degenerative change. Talar dome is unremarkable. IMPRESSION: 1. No fracture. No dislocation. Mild soft tissue swelling about the left ankle. If symptoms persist or worsen, consider a short-term follow-up study or additional imaging for further assessment. Discharge Plan Discharge Clinical Impression: Low back strain, Ankle strain Patient Disposition: Home Condition: Stable Instructions: Antibiotic Form, Back Pain (ED), Ankle Strain (ED) Additional Instructions: Rest and elevate the left leg; bear weight as tolerated Apply ice 15-20 minute intervals several times a day Keep it wrapped with GARETH or use a soft ankle splint Motrin 600mg every 8 hours, alternate with Tylenol 1000mg every 8 hours as needed take the steroid as directed Cyclobenzaprine (Flexeril) is a muscle relaxer. Take it as directed. It can cause drowsiness so do not drive or operate machinery until you know how it makes you feel. Alternate ice/heat to the back/hip pain site. Lidocaine or salon pas pain patch or use pain cream like icy/hot or biofreeze. Follow up with your primary care provider as needed Go to the ER for worsening symptoms or concerns Patient Language: Latvian Prescriptions: New cyclobenzaprine 10 mg tablet 10 mg PO TID PRN (Reason: muscle spasm) Qty: 12 0RF methylprednisolone [Medrol (Arvind)] 4 mg tablets,dose pack See Rx Instructions .ROUTE .COMPLEX Qty: 21 0RF Rx Instructions: orally per package directions No Action sertraline 50 mg tablet 50 mg PO DAILY nicotine 21 mg/24 hr patch 24 hour 1 patch transdermal DAILY Follow-up/Referrals: Rubén,JAMES Carter [Primary Care Provider] Time of Disposition: 09:54
== END 2025-02-21 10:05 | disposition home or self-care (01) ==
PROVIDERS: Emergency Provider Nurse Practitioner Family; PCP Physician Assistant
DX: S39.012A Strain of muscle, fascia and tendon of lower back, initial encounter (principal); S96.912A Strain of unspecified muscle and tendon at ankle and foot level, left foot, initial encounter; X50.1XXA Overexertion from prolonged static or awkward postures, initial encounter; I10 Essential (primary) hypertension; K21.9 Gastro-esophageal reflux disease without esophagitis; F41.9 Anxiety disorder, unspecified; F32.A Depression, unspecified; F17.200 Nicotine dependence, unspecified, uncomplicated
CPT/HCPCS: 72100; 73610; 99214; G0463